=== PATIENT | female | born 1955 | race Caucasian/White ===

== ENCOUNTER 2017-12-24 20:11 | Inpatient (IN) | payer BC ==
[2017-12-24] MEDS ORDERED: ONDANSETRON 4 MG/2 ML VIAL IVP STA ×2 (20:19→20:28)
[2017-12-24] MEDS ORDERED: SODIUM CHLORIDE 0.9% 1,000 ML IV STA (20:19)
[2017-12-24] MEDS ORDERED: SODIUM CHLORIDE 0.9% 500 ML IV STA (20:19)
--- NOTE | 2017-12-24 20:24 | ED ---
General Adult HPI - General Stated complaint: flu symptom Time Seen by Provider: 12/24/17 20:17 Source: patient, EMS, RN notes reviewed - History of Present Illness Initial comments: 62-year-old female presents with sudden onset nausea vomiting and this began x- ray 2 hours prior to arrival. She states she was well prior to this. History limited secondary to profound nausea and vomiting. She does admit to having several episodes of diarrhea. She is also felt chilled. Denies chest pain denies abdominal pain. - Related Data Home Medications Medication Instructions Recorded Confirmed Albuterol Inhaler [Ventolin Hfa 2 puff INHALATION RT-Q6H PRN 12/24/17 12/24/17 Inhaler] Multivitamins, Thera [Multivitamin 1 tab PO DAILY 12/24/17 12/24/17 (formulary)] Naproxen Sodium [Aleve] 220 mg PO DAILY PRN 12/24/17 12/24/17 Allergies Allergy/AdvReac Type Severity Reaction Status Date / Time meloxicam [From Mobic] Allergy Rash/Hives Verified 12/24/17 21:04 Review of Systems ROS Statement: Those systems with pertinent positive or pertinent negative responses have been documented in the HPI. ROS Other: All systems not noted in ROS Statement are negative. General Exam General appearance: alert, in distress Head exam: Present: atraumatic, normocephalic Eye exam: Present: normal appearance, PERRL ENT exam: Present: mucous membranes dry Neck exam: Present: normal inspection. Absent: tenderness, meningismus Respiratory exam: Present: normal lung sounds bilaterally. Absent: respiratory distress, wheezes Cardiovascular Exam: Present: regular rate, normal rhythm GI/Abdominal exam: Present: soft. Absent: distended, tenderness Extremities exam: Present: normal inspection, normal capillary refill. Absent: pedal edema Neurological exam: Present: alert, oriented X3. Absent: motor sensory deficit Skin exam: Present: warm, intact, diaphoretic. Absent: cyanosis Course Vital Signs 12/24/17 12/24/17 12/24/17 20:15 20:30 21:00 Temperature 96.7 F L Pulse Rate 87 67 Pulse Rate [ 83 Sitting] Pulse Rate [ 90 Standing] Pulse Rate [ 87 Supine] Respiratory 20 20 20 Rate Blood Pressure 123/81 117/71 Blood Pressure 137/74 [Sitting] Blood Pressure 133/64 [Standing] Blood Pressure 123/81 [Supine] O2 Sat by Pulse 100 97 Oximetry 12/24/17 22:45 Temperature Pulse Rate 88 Pulse Rate [ Sitting] Pulse Rate [ Standing] Pulse Rate [ Supine] Respiratory 20 Rate Blood Pressure 126/56 Blood Pressure [Sitting] Blood Pressure [Standing] Blood Pressure [Supine] O2 Sat by Pulse 99 Oximetry - Reevaluation(s) Reevaluation #1: 12/24/17 23:01 On reevaluation, patient denies any pain complaints, she is having persistent nausea and vomiting while in the emergency department. She is still lightheaded. Denies any other complaints. Medical Decision Making - Medical Decision Making 62-year-old female presenting with nausea vomiting, diarrhea, and lightheadedness. Laboratory studies are obtained, normal white blood cell count , stable hemoglobin, potassium is 3.2 and is replaced. Patient does have mild lactic acidosis of 2.1 secondary to dehydration. Troponin and influenza are negative. Chest x-ray negative for focal pneumonia. X-ray of the abdomen negative for obstruction. Urinalysis is pending. Patient is given multiple doses of antiemetics in the emergency department. She will be admitted for rehydration and further evaluation. - Lab Data Result diagrams: 12/24/17 20:35 12/24/17 20:35 Lab Results 12/24/17 12/24/17 12/24/17 Range/Units 20:35 20:35 20:35 WBC 7.9 (3.8-10.6) k/uL RBC 3.97 (3.80-5.40) m/uL Hgb 12.3 (11.4-16.0) gm/dL Hct 37.5 (34.0-46.0) % MCV 94.5 (80.0-100.0) fL MCH 30.9 (25.0-35.0) pg MCHC 32.7 (31.0-37.0) g/dL RDW 12.9 (11.5-15.5) % Plt Count 218 (150-450) k/uL Neutrophils % 62 % Lymphocytes % 30 % Monocytes % 4 % Eosinophils % 2 % Basophils % 0 % Neutrophils # 4.9 (1.3-7.7) k/uL Lymphocytes # 2.4 (1.0-4.8) k/uL Monocytes # 0.3 (0-1.0) k/uL Eosinophils # 0.2 (0-0.7) k/uL Basophils # 0.0 (0-0.2) k/uL PT (9.0-12.0) sec INR (<1.2) APTT (22.0-30.0) sec Sodium 140 (137-145) mmol/L Potassium 3.2 L (3.5-5.1) mmol/L Chloride 109 H (98-107) mmol/L Carbon Dioxide 19 L (22-30) mmol/L Anion Gap 12 mmol/L BUN 20 H (7-17) mg/dL Creatinine 0.70 (0.52-1.04) mg/dL Est GFR (MDRD) Af Amer >60 (>60 ml/min/1.73 sqM) Est GFR (MDRD) Non-Af >60 (>60 ml/min/1.73 sqM) Glucose 123 H (74-99) mg/dL Plasma Lactic Acid Zachariah 2.1 H* (0.7-2.0) mmol/L Calcium 8.6 (8.4-10.2) mg/dL Total Bilirubin 0.5 (0.2-1.3) mg/dL AST 19 (14-36) U/L ALT 24 (9-52) U/L Alkaline Phosphatase 54 (38-126) U/L Troponin I (0.000-0.034) ng/mL Total Protein 5.9 L (6.3-8.2) g/dL Albumin 3.6 (3.5-5.0) g/dL Amylase 60 (30-110) U/L Lipase 70 (23-300) U/L Urine Color Urine Appearance (Clear) Urine pH (5.0-8.0) Ur Specific [place] (1.001-1.035) Urine Protein (Negative) Urine Glucose (UA) (Negative) Urine Ketones (Negative) Urine Blood (Negative) Urine Nitrite (Negative) Urine Bilirubin (Negative) Urine Urobilinogen (<2.0) mg/dL Ur Leukocyte Esterase (Negative) Influenza Type A RNA (Not Detectd) Influenza Type B (PCR) (Not Detectd) 12/24/17 12/24/17 12/24/17 Range/Units 20:35 20:35 20:35 WBC (3.8-10.6) k/uL RBC (3.80-5.40) m/uL Hgb (11.4-16.0) gm/dL Hct (34.0-46.0) % MCV (80.0-100.0) fL MCH (25.0-35.0) pg MCHC (31.0-37.0) g/dL RDW (11.5-15.5) % Plt Count (150-450) k/uL Neutrophils % % Lymphocytes % % Monocytes % % Eosinophils % % Basophils % % Neutrophils # (1.3-7.7) k/uL Lymphocytes # (1.0-4.8) k/uL Monocytes # (0-1.0) k/uL Eosinophils # (0-0.7) k/uL Basophils # (0-0.2) k/uL PT 10.8 (9.0-12.0) sec INR 1.1 (<1.2) APTT 20.9 L (22.0-30.0) sec Sodium (137-145) mmol/L Potassium (3.5-5.1) mmol/L Chloride (98-107) mmol/L Carbon Dioxide (22-30) mmol/L Anion Gap mmol/L BUN (7-17) mg/dL Creatinine (0.52-1.04) mg/dL Est GFR (MDRD) Af Amer (>60 ml/min/1.73 sqM) Est GFR (MDRD) Non-Af (>60 ml/min/1.73 sqM) Glucose (74-99) mg/dL Plasma Lactic Acid Zachariah (0.7-2.0) mmol/L Calcium (8.4-10.2) mg/dL Total Bilirubin (0.2-1.3) mg/dL AST (14-36) U/L ALT (9-52) U/L Alkaline Phosphatase (38-126) U/L Troponin I <0.012 (0.000-0.034) ng/mL Total Protein (6.3-8.2) g/dL Albumin (3.5-5.0) g/dL Amylase (30-110) U/L Lipase (23-300) U/L Urine Color Urine Appearance (Clear) Urine pH (5.0-8.0) Ur Specific [place] (1.001-1.035) Urine Protein (Negative) Urine Glucose (UA) (Negative) Urine Ketones (Negative) Urine Blood (Negative) Urine Nitrite (Negative) Urine Bilirubin (Negative) Urine Urobilinogen (<2.0) mg/dL Ur Leukocyte Esterase (Negative) Influenza Type A RNA Not Detected (Not Detectd) Influenza Type B (PCR) Not Detected (Not Detectd) 12/24/17 Range/Units 22:20 WBC (3.8-10.6) k/uL RBC (3.80-5.40) m/uL Hgb (11.4-16.0) gm/dL Hct (34.0-46.0) % MCV (80.0-100.0) fL MCH (25.0-35.0) pg MCHC (31.0-37.0) g/dL RDW (11.5-15.5) % Plt Count (150-450) k/uL Neutrophils % % Lymphocytes % % Monocytes % % Eosinophils % % Basophils % % Neutrophils # (1.3-7.7) k/uL Lymphocytes # (1.0-4.8) k/uL Monocytes # (0-1.0) k/uL Eosinophils # (0-0.7) k/uL Basophils # (0-0.2) k/uL PT (9.0-12.0) sec INR (<1.2) APTT (22.0-30.0) sec Sodium (137-145) mmol/L Potassium (3.5-5.1) mmol/L Chloride (98-107) mmol/L Carbon Dioxide (22-30) mmol/L Anion Gap mmol/L BUN (7-17) mg/dL Creatinine (0.52-1.04) mg/dL Est GFR (MDRD) Af Amer (>60 ml/min/1.73 sqM) Est GFR (MDRD) Non-Af (>60 ml/min/1.73 sqM) Glucose (74-99) mg/dL Plasma Lactic Acid Zachariah (0.7-2.0) mmol/L Calcium (8.4-10.2) mg/dL Total Bilirubin (0.2-1.3) mg/dL AST (14-36) U/L ALT (9-52) U/L Alkaline Phosphatase (38-126) U/L Troponin I (0.000-0.034) ng/mL Total Protein (6.3-8.2) g/dL Albumin (3.5-5.0) g/dL Amylase (30-110) U/L Lipase (23-300) U/L Urine Color Light Yellow Urine Appearance Clear (Clear) Urine pH 8.0 (5.0-8.0) Ur Specific [place] 1.009 (1.001-1.035) Urine Protein Negative (Negative) Urine Glucose (UA) Negative (Negative) Urine Ketones 1+ H (Negative) Urine Blood Negative (Negative) Urine Nitrite Negative (Negative) Urine Bilirubin Negative (Negative) Urine Urobilinogen <2.0 (<2.0) mg/dL Ur Leukocyte Esterase Negative (Negative) Influenza Type A RNA (Not Detectd) Influenza Type B (PCR) (Not Detectd) Disposition Clinical Impression: Nausea vomiting and diarrhea, Dehydration, Lactic acidosis Disposition: ADMITTED IP TO THIS [facility] Condition: Stable Referrals: Luz Marina Parikh DO [Primary Care Provider] - 1-2 days Decision to Admit Reason: Admit from EC Decision Date: 12/24/17 Decision Time: 23:03
[2017-12-24] MEDS ORDERED: SODIUM CHLORIDE 0.9% 1,000 ML IV ONE (20:28)
[2017-12-24 20:49] LABS: Basophils % (A) 0 %; Eosinophils # (A) 0.2 k/uL (0-0.7); Eosinophils % (A) 2 %; HCT 37.5 % (34.0-46.0); HGB 12.3 gm/dL (11.4-16.0); Lymphocytes # (A) 2.4 k/uL (1.0-4.8); Lymphocytes % (A) 30 %; MCH 30.9 pg (25.0-35.0); MCHC 32.7 g/dL (31.0-37.0); MCV 94.5 fL (80.0-100.0); Mean Platelet Volume 6.9; Monocytes # (A) 0.3 k/uL (0-1.0); Monocytes % (A) 4 %; Neutrophils # (A) 4.9 k/uL (1.3-7.7); Neutrophils % (A) 62 %; Platelet Count 218 k/uL (150-450); RBC 3.97 m/uL (3.80-5.40); RDW 12.9 % (11.5-15.5); WBC 7.9 k/uL (3.8-10.6)
[2017-12-24 20:57] LABS: INR 1.1 (<1.2); Prothrombin Time 10.8 sec (9.0-12.0)
[2017-12-24 21:01] LABS: ALT 24 U/L (9-52); AST 19 U/L (14-36); Albumin 3.6 g/dL (3.5-5.0); Alkaline Phosphatase 54 U/L (38-126); Amylase 60 U/L (30-110); Anion Gap 12 mmol/L; Blood Urea Nitrogen 20 mg/dL (7-17); Calcium 8.6 mg/dL (8.4-10.2); Carbon Dioxide 19 mmol/L (22-30); Chloride 109 mmol/L (98-107); Glucose 123 mg/dL (74-99); Lipase 70 U/L (23-300); Potassium 3.2 mmol/L (3.5-5.1); Sodium 140 mmol/L (137-145); Total Bilirubin 0.5 mg/dL (0.2-1.3); Total Protein 5.9 g/dL (6.3-8.2)
[2017-12-24 21:03] LABS: Partial Thromboplastin Time 20.9 sec (22.0-30.0)
--- NOTE | 2017-12-24 21:31 | XR ---
EXAMINATION TYPE: XR KUB DATE OF EXAM: 12/24/2017 COMPARISON: NONE HISTORY: Weakness and dizziness with generalized abdominal pain with flulike symptoms TECHNIQUE: 2 supine views FINDINGS: The soft tissues and skeletal structures are unremarkable. Visualized lung bases and pleura l spaces are unremarkable. Limitation: Supine radiography cannot exclude pneumoperitoneum. IMPRESSION: NEGATIVE EXAMINATION.
--- NOTE | 2017-12-24 21:40 | XR ---
EXAMINATION: XR chest 2V DATE AND TIME: 12/24/2017 8:57 PM ORDERING PROVIDER: Rich Love MD CLINICAL INDICATION: abdominal pain TECHNIQUE: PA and lateral COMPARISON: None. DESCRIPTION: The lungs are clear. The pleural spaces are negative. The cardiac silhouette is not enlarged. The mediastinal and pleural silhouettes are unremarkable. The skeletal structures are intact without focal findings. The overlying soft tissues are prominent. IMPRESSION: NO ACUTE PROCESS.
[2017-12-24 22:53] LABS: Appearance,Urine Clear (Clear); Bilirubin,Urine Negative (Negative); Blood,Urine Negative (Negative); Color,Urine Light Yellow; Glucose,Urine (UA) Negative (Negative); Ketones,Urine 1+ (Negative); Leukocyte Esterase,Urine Negative (Negative); Nitrite,Urine Negative (Negative); Protein,Urine Negative (Negative); Specific Gravity,Urine 1.009 (1.001-1.035); Urobilinogen,Urine <2.0 mg/dL (<2.0)
[2017-12-24] MEDS ORDERED: ONDANSETRON 4 MG/2 ML VIAL IVP PRN (23:00)
[2017-12-24] MEDS ORDERED: MORPHINE SULFATE 4 MG/ML SYRINGE IV PRN (23:00)
[2017-12-24] MEDS ORDERED: NALOXONE 0.4 MG/ML 1 ML VIAL IV PRN (23:00)
[2017-12-24] MEDS ORDERED: ACETAMINOPHEN TAB 325 MG TAB PO PRN (23:00)
[2017-12-24] MEDS ORDERED: POTASSIUM CHLORIDE ER 20 MEQ TAB.ER PO STA (23:04)
[2017-12-25 09:31] VITALS: RESP 16
[2017-12-25 11:41] LABS: Glucose,Whole Blood 81 mg/dL (75-99)
[2017-12-25 13:40] LABS: Basophils % (A) 1 %; Eosinophils # (A) 0.2 k/uL (0-0.7); Eosinophils % (A) 2 %; HCT 37.8 % (34.0-46.0); HGB 12.1 gm/dL (11.4-16.0); Lymphocytes # (A) 2.7 k/uL (1.0-4.8); Lymphocytes % (A) 39 %; MCH 30.6 pg (25.0-35.0); MCHC 31.9 g/dL (31.0-37.0); MCV 95.7 fL (80.0-100.0); Mean Platelet Volume 6.8; Monocytes # (A) 0.3 k/uL (0-1.0); Monocytes % (A) 4 %; Neutrophils # (A) 3.8 k/uL (1.3-7.7); Neutrophils % (A) 54 %; Platelet Count 227 k/uL (150-450); RBC 3.95 m/uL (3.80-5.40); RDW 13.1 % (11.5-15.5)
[2017-12-25 13:51] LABS: Anion Gap 9 mmol/L; Blood Urea Nitrogen 12 mg/dL (7-17); Calcium 8.8 mg/dL (8.4-10.2); Carbon Dioxide 22 mmol/L (22-30); Chloride 112 mmol/L (98-107); Glucose 137 mg/dL (74-99); Potassium 3.6 mmol/L (3.5-5.1); Sodium 143 mmol/L (137-145)
[2017-12-25] MEDS: 0.9% NACL WITH KCL 20 MEQ/L 1,000 ML IV SCH (14:26)
[2017-12-25 14:54] LABS: Amphetamine Screen,Urine Not Detected (NotDetected); Barbiturate Screen,Urine Not Detected (NotDetected); Benzodiazepines Screen,Urine Not Detected (NotDetected); Cocaine Screen,Urine Not Detected (NotDetected); Methadone Screen, Urine Not Detected (NotDetected); Opiate Screen,Urine Not Detected (NotDetected); Oxycodone Screen, Urine Not Detected (NotDetected); Phencyclidine Screen,Urine Not Detected (NotDetected); Tricyclic Antidepressant,Urine Not Detected (NotDetected); Urn Cannabinoid Scrn Not Detected (NotDetected)
[2017-12-25] MEDS: MECLIZINE 12.5 MG TAB PO SCH ×2 (15:03→20:34)
[2017-12-25] MEDS ORDERED: ALBUTEROL NEBULIZED 2.5 MG/3 ML INHALATION PRN (16:44)
--- NOTE | 2017-12-25 18:09 | HP ---
HISTORY AND PHYSICAL CHIEF COMPLAINT: Dizziness and vertigo. HISTORY OF PRESENT ILLNESS: This 62-year-old woman with a past history of hysterectomy, history of asthma, history of right ankle surgery, bilateral rotator cuff surgery being followed by Dr. Parikh in the outpatient setting is apparently getting up yesterday and subsequently patient had significant dizziness. The patient also had vertigo. Patient also nausea, vomited. Patient also had episodes of diarrhea prior to that, and the patient came to [facility] and was admitted for further evaluation and treatment. There is no history of fever, rigors, headache, loss of consciousness, seizures. MRI cannot be done because of plate and screws in the leg. PAST MEDICAL HISTORY: History of asthma, hysterectomy, DJD. MEDICATIONS: Prior to admission include home medications are Naprosyn 220 mg p.o. daily p.r.n., multivitamins 1 p.o. daily, Albuterol 2 puffs q.6h p.r.n. ALLERGIES: MOBIC. FAMILY HISTORY: History of cancer and coronary artery disease in the family. SOCIAL HISTORY: Previous history of smoking. No history of current smoking or alcohol intake. REVIEW OF SYSTEMS: ENT: No diminished hearing or vision. CARDIOVASCULAR: No angina. RESPIRATORY: No cough. GI: As mentioned. : No dysuria. NERVOUS SYSTEM: As mentioned earlier. ALLERGY/IMMUNOLOGY: As mentioned earlier. MUSCULOSKELETAL: As mentioned earlier. HEMATOLOGY: No history of anemia. ENDOCRINE: No history of diabetes or hypothyroid. CONSTITUTIONAL: As mentioned earlier. DERMATOLOGY: Negative. RHEUMATOLOGY: Negative. PSYCHIATRY: As mentioned earlier. PHYSICAL EXAMINATION: alert and oriented x3. Pulse 65, blood pressure 125/76, respirations 16, temperature 98.1, pulse ox 98% on room air. HEENT: Conjunctivae normal. Oral mucosa moist. NECK: No jugular venous distention. No carotid bruit. No lymph node enlargement. CARDIOVASCULAR: S1, S2. RESPIRATORY: Breath sounds diminished in the bases. No rhonchi, no crackles. ABDOMEN: Soft, nontender. No mass palpable. LEGS: No edema. NERVOUS SYSTEM: Higher functions as mentioned. Cranial nerves II through XII grossly intact. No nystagmus, no diplopia. No visual field defect. Moves all 4 limbs. No cerebellar dysfunction. LYMPHATICS: No lymphadenopathy in the neck, axillae, groin. SKIN: No ulcer, rash, bleeding. JOINTS: No active deforming arthropathy. LAB: CBC within normal limits. Chloride is 112. Glucose 137. UA drug screen is negative. ASSESSMENT: 1. Dizziness and vertigo, rule out benign positional vertigo. 2. Rule out transient ischemic attack. 3. History of asthma. 4. History of hysterectomy. 5. History of degenerative joint disease and right ankle surgery. 6. FULL CODE. RECOMMENDATIONS AND DISCUSSION: In this 62-year-old woman who presented with multiple complex medical issues, will monitor the patient closely. Continue the current management. Check orthostatic vitals and I would also recommend a CT scan of the brain. MRI could not be done because of the metallic implant. Otherwise I would treat the patient symptomatically, Protonix. Guarded prognosis because of multiple complex medical issues. Further recommendations to follow. MMODL / IJN: [id number] /
--- NOTE | 2017-12-25 18:21 | CT ---
EXAMINATION TYPE: CT brain wo con DATE OF EXAM: 12/25/2017 HISTORY: Dizziness since last night. CT DLP: 1159 mGycm. Automated Exposure Control for Dose Reduction was Utilized. TECHNIQUE: CT scan of the head is performed without contrast. COMPARISON: None. FINDINGS: There is no acute intracranial hemorrhage or midline shift identified. There is diffuse v entricular and sulcal prominence consistent with diffuse age-related cerebral atrophy. There is low- attenuation in the periventricular white matter consistent with chronic small vessel ischemic change. The globes are intact and the visualized sinuses are clear. Visualized mastoids show no suspiciou s opacification. IMPRESSION: No acute intracranial hemorrhage or midline shift. There is mild diffuse age-related ce rebral atrophy and minimal chronic small vessel ischemic change noted.
--- NOTE | 2017-12-25 19:06 | P.CNNES ---
History of Present Illness Consult date: 12/25/17 Requesting physician: Aislinn Salter Reason for Consult: Dizziness History of Present Illness: Patient is a pleasant 62-year-old female who is being evaluated by the neurology service on 12/25/2017 per the request of Dr. Salter for dizziness. Patient has medical history of asthma. Patient states she was at work yesterday and everything was fine. 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 Patient made her way to the house and laid on the couch. She tried to get up several times and dizziness continued. Patient called 911 and was brought to the emergency room. Patient continued to have dizziness and started to have nausea and vomiting in the emergency room. Patient denies fever, headache, seizures, lateralizing weakness, speech difficulty or dysphagia. Vital signs on admission were temperature 96.7 pulse rate 87 respiratory rate 20 blood pressure 123/81 and O2 saturation 100% on room air. Labs on admission showed CBC with differential was within normal limits. Labs revealed hypokalemia of 3.2, BUN 20, creatinine 0.7. Lactic acid level was elevated at 2.1. Patient was treated with fluids and potassium was replaced. Patient was negative for influenza. Computed tomography scan of the brain was done and showed chronic small vessel ischemic changes. At the time of my evaluation, patient's resting comfortably in bed and appears to be in no acute distress. Review of Systems REVIEW OF SYSTEMS: Otherwise unremarkable and noncontributory. Past Medical History Past Medical History: Asthma History of Any Multi-Drug Resistant Organisms: None Reported Past Surgical History: Hysterectomy, Orthopedic Surgery Additional Past Surgical History / Comment(s): Rt Ankle surgery. Bilateral Rotator Cuff surgery. Total hysterectomy Past Anesthesia/Blood Transfusion Reactions: Postoperative Nausea & Vomiting ( PONV) Past Psychological History: No Psychological Hx Reported Smoking Status: Former smoker Past Alcohol Use History: None Reported Past Drug Use History: None Reported - Past Family History Father Family Medical History: Cancer, Coronary Artery Disease (CAD) Mother Family Medical History: Cancer, Coronary Artery Disease (CAD) Sister(s) Family Medical History: Myocardial Infarction (ND) Medications and Allergies Home Medications Medication Instructions Recorded Confirmed Type Albuterol Inhaler [Ventolin Hfa 2 puff INHALATION RT-Q6H PRN 12/24/17 12/24/17 History Inhaler] Multivitamins, Thera [Multivitamin 1 tab PO DAILY 12/24/17 12/24/17 History (formulary)] Naproxen Sodium [Aleve] 220 mg PO DAILY PRN 12/24/17 12/24/17 History Allergies Allergy/AdvReac Type Severity Reaction Status Date / Time [facility] Allergy Rash/Hives Verified 12/24/17 21:04 Physical Examination - Vital Signs Vital Signs: Vital Signs Temp Pulse Pulse Pulse Pulse Resp BP 12/25/17 15:00 98.1 F 65 16 12/25/17 09:31 97.4 F L 66 16 12/25/17 08:00 16 12/25/17 00:30 97.3 F L 70 19 12/24/17 23:51 97.3 F L 69 20 121/70 12/24/17 22:45 88 20 126/56 12/24/17 21:00 67 20 117/71 12/24/17 20:30 83 90 87 20 12/24/17 20:15 96.7 F L 87 20 123/81 BP BP BP Pulse Ox 12/25/17 15:00 125/76 98 12/25/17 09:31 148/75 98 12/25/17 08:00 12/25/17 00:30 124/79 97 12/24/17 23:51 99 12/24/17 22:45 99 12/24/17 21:00 97 12/24/17 20:30 137/74 133/64 123/81 12/24/17 20:15 100 Intake and Output 12/25/17 12/25/17 12/25/17 06:59 14:59 22:59 Intake Total 575 400 Output Total 275 Balance 300 400 Intake: Oral 575 400 Output: Urine 275 Other: Voiding Method Toilet # Voids 1 1 PHYSICAL EXAM: GENERAL APPEARANCE: Patient is a well-developed, female who appears to be in no acute distress. HEENT: Normocephalic, atraumatic, no facial asymmetry is seen. Neck is supple with no masses felt. CARDIOVASCULAR: Regular rate and rhythm. ABDOMEN: Nontender, nondistended. EXTREMITIES: Show no edema or clubbing. NEUROLOGICAL EXAM: Patient is awake, alert, and oriented 3. Speech and language are normal. Strength is full in all 4 extremities. Sensory exam to light touch is normal in all 4 extremities. No dysmetria noted. No pronator drift. No facial asymmetry is seen on cranial nerve testing. No tremors or seizure-like activity noted. Results - Laboratory Findings CBC and BMP: 12/25/17 13:24 12/25/17 13:24 Abnormal Lab Findings: Abnormal Labs 12/24/17 12/24/17 12/24/17 20:35 20:35 20:35 APTT 20.9 L Potassium 3.2 L Chloride 109 H Carbon Dioxide 19 L BUN 20 H Glucose 123 H Plasma Lactic Acid Zachariah 2.1 H* Total Protein 5.9 L Urine Ketones 12/24/17 12/25/17 22:20 13:24 APTT Potassium Chloride 112 H Carbon Dioxide BUN Glucose 137 H Plasma Lactic Acid Zachariah Total Protein Urine Ketones 1+ H Assessment and Plan Plan: Impression: 1. Dizziness, resolved 2. Dehydration 3. Hypokalemia 4. Asthma Recommendations: It appears patient had an episode of dizziness while bending over and then standing up too quickly. Patient states dizziness has resolved at this time. She denies any seizure-like activity or lateralizing weakness. She denies any speech difficulty or dysphagia. I believe this to be more consistent with benign paroxysmal positional vertigo. Antivert has been ordered as needed. As mentioned above, computed tomography scan of the brain was without any acute process. I recommend to check orthostatics. Patient may need tilt table test as an outpatient. Patient can follow up in our office for further testing for vestibular pathology. If dizziness persists, vestibular rehab is an option in our office to assist patient in controlling the dizziness. No neurological deficits have been assessed. No further neurological workup needed at this time. Continue current medical management with replacement of potassium and fluids. I will continue to follow with you on an as-needed basis. Feel free to call with any questions or concerns. Thank you for allowing me to participate in the care of your patient. Feel free to call with any questions or concerns. I performed an examination of the patient and discussed the management with the ELECTRICAL MAINTENANCE MECHANIC. I have reviewed the ELECTRICAL MAINTENANCE MECHANIC notes and agree with the findings and plan of care.
[2017-12-25] MEDS: PANTOPRAZOLE 40 MG/10 ML VIAL IVP SCH (20:34)
[2017-12-26 02:26] VITALS: TEMP 97.7
[2017-12-26 07:23] VITALS: PULSE 58
[2017-12-26 07:25] VITALS: BP 140/93
[2017-12-26] MEDS: MECLIZINE 12.5 MG TAB PO SCH (07:28)
[2017-12-26] MEDS: PANTOPRAZOLE 40 MG/10 ML VIAL IVP SCH (07:28)
[2017-12-26 07:29] LABS: Basophils % (A) 0 %; Eosinophils # (A) 0.2 k/uL (0-0.7); Eosinophils % (A) 4 %; HGB 11.4 gm/dL (11.4-16.0); Hypochromasia Slight; Lymphocytes # (A) 2.7 k/uL (1.0-4.8); Lymphocytes % (A) 47 %; MCH 30.4 pg (25.0-35.0); MCHC 30.8 g/dL (31.0-37.0); MCV 98.9 fL (80.0-100.0); Mean Platelet Volume 6.9; Monocytes # (A) 0.3 k/uL (0-1.0); Monocytes % (A) 5 %; Neutrophils # (A) 2.5 k/uL (1.3-7.7); Neutrophils % (A) 43 %; Platelet Count 200 k/uL (150-450); RBC 3.74 m/uL (3.80-5.40); WBC 5.8 k/uL (3.8-10.6)
[2017-12-26 07:54] LABS: Anion Gap 8 mmol/L; Blood Urea Nitrogen 11 mg/dL (7-17); Calcium 8.8 mg/dL (8.4-10.2); Carbon Dioxide 25 mmol/L (22-30); Chloride 112 mmol/L (98-107); Glucose 80 mg/dL (74-99); Potassium 4.5 mmol/L (3.5-5.1); Sodium 145 mmol/L (137-145)
[2017-12-26] MEDS: 0.9% NACL WITH KCL 20 MEQ/L 1,000 ML IV SCH (08:45)
[2017-12-26] MEDS ORDERED: MULTIVITAMINS, THERA 1 EACH TAB PO SCH (12:00)
--- NOTE | 2017-12-27 09:58 | DS ---
DISCHARGE SUMMARY DATE OF SERVICE: 12/26/2017. FINAL DIAGNOSES: 1. Dizziness and vertigo, possibly benign pressure vertigo. 2. History of asthma. 3. History of hysterectomy. 4. Transient ischemic attack unlikely. 5. History of degenerative joint disease. 6. Right ankle surgery. 7. FULL CODE. DISCHARGE DISPOSITION: The patient is being discharged in stable condition with guarded prognosis. HISTORY OF PRESENT ILLNESS: This 62-year-old woman with past medical history of multiple medical problems admitted with vertigo, possibly benign positional vertigo and neurology saw the patient and recommended continue with current medication. PHYSICAL EXAMINATION: Vital signs stable. Cardiovascular: S1, S2. Abdomen soft. Nervous system: No focal deficits. MRA could not be done. The patient is being discharged in stable condition. DISCHARGE INSTRUCTIONS: 1. Diet is cardiac diet. 2. Activity limited until followup. 3. Follow up with Dr. Medrano as recommended. 4. Follow up with Dr. Christie in one to two days. MEDICATIONS ARE: 1. Tylenol p.r.n. 2. Ventolin HFA 2 puffs p.r.n. 3. Antivert 12.5 mg t.i.d. p.r.n.. 4. Multivitamins 1 p.o. daily. 5. Naprosyn p.r.n. Once again, the patient is being discharged in stable condition with guarded prognosis. MMODL / IJN: [id number] /
== END 2017-12-26 14:57 | disposition home or self-care (01) | DRG 149 ==
LOC: EC 20:11 → 3SUR 23:00
PROVIDERS: ADMIT Hospitalist; ATTEND Hospitalist
DX: H81.10 Benign paroxysmal vertigo, unspecified ear (principal); E87.2 Acidosis; E86.0 Dehydration; J45.909 Unspecified asthma, uncomplicated; M19.90 Unspecified osteoarthritis, unspecified site; E87.6 Hypokalemia; Z82.49 Family history of ischemic heart disease and other diseases of the circulatory system; Z85.9 Personal history of malignant neoplasm, unspecified; Z79.899 Other long term (current) drug therapy; Z87.891 Personal history of nicotine dependence; Z90.710 Acquired absence of both cervix and uterus; Z88.8 Allergy status to other drugs, medicaments and biological substances
CPT/HCPCS: 36415; 70450; 71046; 74018; 80048; 80053; 80306; 81003; 82150; 83605; 83690; 84484; 85025; 85610; 85730; 87502; 96361; 96374; 99285

== ENCOUNTER → 2018-01-14 | Outpatient (CLI) | payer BC ==
--- NOTE | 2018-01-14 14:48 | US ---
EXAMINATION TYPE: US carotid duplex BILAT DATE OF EXAM: 01/14/2018 COMPARISON: NONE CLINICAL HISTORY: Syncope R55, Dizziness R42. EXAM MEASUREMENTS: RIGHT: Peak Systolic Velocity (PSV) cm/sec ----- Right CCA: 88.6 ----- Right ICA: 98.2 ----- Right ECA: 120.0 ICA/CCA ratio: 1.1 RIGHT: End Diastole cm/sec ----- Right CCA: 29.2 ----- Right ICA: 29.6 ----- Right ECA: 25.4 LEFT: Peak Systolic Velocity (PSV) cm/sec ----- Left CCA: 88.5 ----- Left ICA: 117.7 ----- Left ECA: 75.7 ICA/CCA ratio: 1.3 LEFT: End Diastole cm/sec ----- Left CCA: 26.3 ----- Left ICA: 45.1 ----- Left ECA: 15.3 VERTEBRALS (direction of flow): Right Vertebral: Antegrade Left Vertebral: Antegrade Rhythm: Normal IMPRESSION: Minimal plaque visualized bilaterally. No elevated velocities, no significant stenosis. Criteria for Assigning % of Stenosis / Diameter reduction (Estimation based on the indirect measurements of the internal carotid artery velocities (ICA PSV). 1. Normal (no stenosis)=ICA PSV < 125 cm/s: ratio < 2.0: ICA EDV<40 cm/s. 2. Less than 50% stenosis=ICA PSV < 125 cm/s: ratio < 2.0: ICA EDV<40 cm/s. 3. 50 to 69% stenosis=ICA PSV of 125 to 230 cm/s: ration 2.0 ? 4.0: ICA EDV 40-100 cm/s. 4. Greater than 70% stenosis to near occlusion= ICA PSV > 230 cm/s: ratio > 4.0: ICA EDV > 100 cm/s. 5. Near occlusion= ICA PSV velocities may be low or undetectable: variable ratio and ICA EDV. 6. Total occlusion=unable to detect flow.
--- NOTE | 2018-01-14 20:23 | ECHOF ---
Referral Reason:R42 Dizziness MEASUREMENTS -------- HEIGHT: 167.6 cm WEIGHT: 83.9 kg BP: RVIDd: 2.8 cm (< 3.3) IVSd: 0.9 cm (0.6 - 1.1) LVIDd: 4.3 cm (3.9 - 5.3) LVPWd: 1.0 cm (0.6 - 1.1) IVSs: 1.2 cm LVIDs: 2.9 cm LVPWs: 1.3 cm LAESV Index (A-L): 24.35 ml/m Ao Diam: 3.2 cm (2.0 - 3.7) AV Cusp: 2.3 cm (1.5 - 2.6) LA Diam: 2.6 cm (2.7 - 3.8) MV EXCURSION: 16.312 mm (> 18.000) MV EF SLOPE: 114 mm/s (70 - 150) EPSS: 1.0 cm MV E Osbaldo: 0.87 m/s MV DecT: 211 ms MV A Osbaldo: 0.93 m/s MV E/A Ratio: 0.93 RAP: 5.00 mmHg RVSP: 29.40 mmHg FINDINGS -------- Sinus rhythm. This was a technically good study. The left ventricular size is normal. Left ventricular wall thickness is normal. Overall left vent ricular systolic function is normal with, an EF between 55 - 60 %. The right ventricle is normal in size and function. Normal LA size by volume 22+/-6 ml/m2. The right atrium is normal in size. The aortic valve is trileaflet, and appears structurally normal. No aortic stenosis or regurgitation. The mitral valve leaflets are mildly thickened. There is trace to mild mitral regurgitation. Mild tricuspid regurgitation present. Right ventricular systolic pressure is normal at < 35 mmHg. There is no evidence of pulmonary hypertension. Trace/mild (physiologic) pulmonic regurgitation. The aortic root size is normal. Normal inferior vena cava with normal inspiratory collapse consistent with estimated right atrial pre ssure of 5 mmHg. The pericardium is normal. There is no pericardial effusion. CONCLUSIONS -------- 1. Sinus rhythm. 2. This was a technically good study. 3. The left ventricular size is normal. 4. Left ventricular wall thickness is normal. 5. Overall left ventricular systolic function is normal with, an EF between 55 - 60 %. 6. Normal LA size by volume 22+/-6 ml/m2. 7. The aortic valve is trileaflet, and appears structurally normal. No aortic stenosis or regurgitati on. 8. The mitral valve leaflets are mildly thickened. 9. There is trace to mild mitral regurgitation. 10. Mild tricuspid regurgitation present. 11. Right ventricular systolic pressure is normal at < 35 mmHg. 12. There is no evidence of pulmonary hypertension. 13. Trace/mild (physiologic) pulmonic regurgitation. 14. The aortic root size is normal. 15. There is no pericardial effusion. ORGANIZATIONAL PSYCHOLOGIST: lEie Cespedes RDCS
== END | disposition home or self-care (01) ==
LOC: RADUSWWP 13:55
PROVIDERS: ATTEND Family Medicine
DX: R42 Dizziness and giddiness (principal); Z88.8 Allergy status to other drugs, medicaments and biological substances
CPT/HCPCS: 93306; 93880

== ENCOUNTER → 2019-12-13 | Outpatient (CLI) | payer MEDICARE, BC | END | disposition home or self-care (01) | LOC: NEUROMAIN 06:50 | PROVIDERS: ATTEND Otolaryngology | DX: R42 Dizziness and giddiness (principal) | CPT/HCPCS: 92537; 92540 ==

== ENCOUNTER 2020-12-24 23:07 | Emergency (ER) | payer BC, MEDICARE, OTHER ==
[2020-12-24 23:22] VITALS: RESP 18
[2020-12-24] MEDS ORDERED: BACITRACIN OINT 1 EACH PACKET TOPICAL ONE (23:33)
[2020-12-24] MEDS ORDERED: LIDOCAINE 1% INJ 10MG/ML (20 ML MDV) SQ ONE (23:33)
--- NOTE | 2020-12-24 23:38 | ED ---
General Adult HPI - General Chief complaint: Extremity Injury, Upper Stated complaint: Rt finger lac - [facility] Time Seen by Provider: 12/24/20 23:23 Source: patient Mode of arrival: ambulatory Limitations: no limitations - History of Present Illness Initial comments: Patient is a 65-year-old female presenting to emergency Department with complaints of a laceration to her right pinky finger. Patient states she was at work and hit her hand on a trophy case, slicing her right fifth digit. She is not on blood thinners, her tetanus is up-to-date. Bleeding is controlled with bandage. She has no further complaints. - Related Data Home Medications Medication Instructions Recorded Confirmed Albuterol Inhaler (Mhu) [Ventolin 2 puff INHALATION RT-Q6H PRN 12/24/17 12/24/17 Hfa Inhaler (Mhu)] Multivitamins, Thera [Multivitamin 1 tab PO DAILY 12/24/17 12/24/17 (formulary)] Naproxen Sodium [Aleve] 220 mg PO DAILY PRN 12/24/17 12/24/17 Previous Rx's Medication Instructions Recorded Acetaminophen Tab [Tylenol] 650 mg PO Q6HR PRN tab 12/26/17 Meclizine [Antivert] 12.5 mg PO TID #60 tab 12/26/17 Allergies Allergy/AdvReac Type Severity Reaction Status Date / Time meloxicam [From Mobic] Allergy Rash/Hives Verified 12/24/17 21:04 Review of Systems ROS Statement: Those systems with pertinent positive or pertinent negative responses have been documented in the HPI. ROS Other: All systems not noted in ROS Statement are negative. Past Medical History Past Medical History: Asthma History of Any Multi-Drug Resistant Organisms: None Reported Past Surgical History: Hysterectomy, Orthopedic Surgery Additional Past Surgical History / Comment(s): Rt Ankle surgery. Bilateral Rotator Cuff surgery. Total hysterectomy Past Anesthesia/Blood Transfusion Reactions: Postoperative Nausea & Vomiting (PONV) Past Psychological History: No Psychological Hx Reported Smoking Status: Former smoker Past Alcohol Use History: Rare Past Drug Use History: None Reported - Past Family History Father Family Medical History: Cancer, Coronary Artery Disease (CAD) Mother Family Medical History: Cancer, Coronary Artery Disease (CAD) Sister(s) Family Medical History: Myocardial Infarction (OK) General Exam - General Exam Comments Initial Comments: GENERAL: Patient is well-developed and well-nourished. Patient is nontoxic and in no acute distress. HEAD: Atraumatic, normocephalic. EYES: Pupils equal round and reactive to light, extraocular movements intact, sclera anicteric, conjunctiva are normal. Eyelids were unremarkable. ENT: TMs normal, nares patent, oropharynx clear without exudates. Moist mucous membranes. NECK: Normal range of motion, supple without lymphadenopathy or JVD. LUNGS: Unlabored respirations. Breath sounds clear to auscultation bilaterally and equal. No wheezes rales or rhonchi. HEART: Regular rate and rhythm without murmurs, rubs or gallops. ABDOMEN: Soft, nontender, normoactive bowel sounds. No guarding, no rebound. No masses appreciated. : Deferred MUSCULOSKELETAL: Patient has full range of motion of the right hand and fingers. She is neurovascular intact. Normal extremities with adequate strength and normal range of motion, no pitting or edema. No clubbing or cyanosis. NEUROLOGICAL: Patient is alert and oriented x 3. Motor and sensory are also intact. Normal speech, normal gait. PSYCH: Normal mood, normal affect. SKIN: Warm, Dry, normal turgor, no rashes. Patient has a 1 cm laceration to the distal end of the right fifth digit, distal and, palmar aspect. Bleeding is controlled with a bandage. Limitations: no limitations Course Vital Signs 12/24/20 12/25/20 23:15 00:34 Temperature 98 F 97.8 F Pulse Rate 92 75 Respiratory 18 18 Rate Blood Pressure 166/102 143/81 O2 Sat by Pulse 97 98 Oximetry Procedures - Laceration Laceration #1 Consent Obtained: verbal consent Indication: laceration Site: hand (Right fifth digit, distal end, rivera aspect) Size (cm): 1 Description: flap, irregular Depth: simple, single layer Anesthetic Used: lidocaine 1% Anesthesia Technique: local infiltration Amount (mls): 4 Pre-repair: irrigated extensively Type of Sutures: nylon Size of Sutures: 5-0 Number of Sutures: 6 Technique: simple, interrupted Patient Tolerated Procedure: well Medical Decision Making - Medical Decision Making Patient is a 65-year-old female presenting with a 1 cm laceration of the distal end of the right fifth digit. Her tetanus vaccine is up-to-date. She is not on blood thinners. Bleeding was controlled with a bandage. His wound was cleaned, closed with 6, 5-0 sutures. Patient tolerated procedure well. She will have sutures removed in 7-10 days. Patient is stable for discharge. Patient is in agreement with this plan of care. Return parameters were discussed with the patient and they verbalized understanding. Case discussed with Dr. Mead. Disposition Clinical Impression: Laceration of right little finger Disposition: HOME SELF-CARE Condition: Stable Instructions (If sedation given, give patient instructions): Care For Your Stitches (ED) Additional Instructions: Please return to the Emergency Department if symptoms worsen or any other concerns. Keep area clean and dry. Keep covered while working. No gripping with right hand until stitches are removed. Sutures need to be removed in 7-10 days. Is patient prescribed a controlled substance at d/c from ED?: No Referrals: Luz Marina Parikh DO [Primary Care Provider] - 1-2 days
[2020-12-25 00:35] VITALS: BP 143/81; PULSE 75; TEMP 97.8
== END 2020-12-25 00:34 | disposition home or self-care (01) ==
LOC: EC 23:07
DX: S61.216A Laceration without foreign body of right little finger without damage to nail, initial encounter (principal); J45.909 Unspecified asthma, uncomplicated; Z87.891 Personal history of nicotine dependence; Z88.6 Allergy status to analgesic agent; W45.8XXA Other foreign body or object entering through skin, initial encounter; Y92.69 Other specified industrial and construction area as the place of occurrence of the external cause; Y99.0 Civilian activity done for income or pay
CPT/HCPCS: 99282; 12001; J2001

== ENCOUNTER → 2025-03-15 | Outpatient (CLI) | payer MEDICARE, BC ==
--- NOTE | 2025-03-16 10:27 | MM ---
Reason for Exam: Screening (asymptomatic). Last mammogram was performed 5 year(s) and 3 month(s) ago. Patient History: Menarche at age 12. Patient has no children. Left ovary removed at age 38. Right ovary removed at age 38. Hysterectomy at age 38. Postmenopausal. Risk Values: Carolina 5 year model risk: 1.8%. NCI Lifetime model risk: 4.9%. Prior Study Comparison: 10/22/2015 Bilateral Screening Mammogram, [facility] [place]. 10/07/2018 Bilateral Screening Mammogram, [facility] [place]. 12/19/2019 Bilateral Screening Mammogram, [facility] [place]. Tissue Density: There are scattered areas of fibroglandular density. Findings: Analyzed By CAD. There is no suspicious group of microcalcifications or new suspicious mass in either breast. Overall Assessment: Negative, BI-RAD 1 Management: Screening Mammogram of both breasts in 1 year. . Patient should continue monthly self-breast exams. A clinical breast exam by your physician is recommended on an annual basis. This exam should not preclude additional follow-up of suspicious palpable abnormalities. Note on Carolina scores and lifetime risk: 1. A Carolina score greater than 3% is considered moderate risk. If this is the case, consider specialist referral to assess eligibility for a risk reducing agent. 2. If overall lifetime risk for the development of breast cancer is 20% or higher, the patient may qualify for future screening with alternating mammogram and breast MRI. [facility], , 03/16/2025 10:24 AM. Electronically signed and approved by: Mahamed Borrero M.D.
== END | disposition home or self-care (01) ==
LOC: RADMAMWWP 11:16
PROVIDERS: ATTEND Family Medicine
DX: Z12.31 Encounter for screening mammogram for malignant neoplasm of breast (principal); R92.323 Mammographic fibroglandular density, bilateral breasts; Z78.0 Asymptomatic menopausal state
CPT/HCPCS: 77063; 77067